=== PATIENT | male | born 1990 | race Asian ===

== ENCOUNTER 2023-07-10 21:45 | Observation (INO) | payer OTHER ==
[2023-07-10] MEDS ORDERED: NA CHLORIDE 0.9% 1,000 ML ONE (22:52)
[2023-07-10] MEDS ORDERED: dexAMETHasone 10 MG/ML VIAL ONE (22:52)
[2023-07-10 23:18] LABS: Absolute Basophils 0.1 K/uL (0-0.5); Absolute Lymphocytes (CBC) 2.5 K/uL (0.7-4.9); Absolute Monocytes 1.4 K/uL (0.1-1.3); Absolute Neutrophil 13.5 K/uL (1.8-8.0); Basophils % 0.3 % (0-1.3); Eosinophils % 0.3 % (0-4.4); Hematocrit 44.9 % (39.6-49.0); Hemoglobin 15.2 g/dL (13.6-17.9); Lymphocytes % 14.1 % (15.3-44.8); MCH 30.3 pg (27.0-35.0); MCHC 33.8 g/dL (32.0-36.0); MCV 89.4 fL (80-100); MPV 9.5 fL (7.6-11.3); Monocytes % 8.2 % (3.3-12.3); Neutrophils % 77.1 % (41.7-73.7); Platelets 254 thou/uL (152-406); RBC Red Blood Cell Count 5.02 M/uL (4.33-5.43); Red Cell Distribution Width 12.2 % (12.1-15.2)
[2023-07-10 23:30] LABS: Anion Gap 5.5 mEq/L (5.0-15.0); Potassium 3.5 mEq/L (3.5-5.1)
--- NOTE | 2023-07-10 23:46 | EDPHYS ---
Physician Documentation [facility] Name: Daniel Huddleston Age: 32 yrs Sex: Male : 1990 Arrival Date: 07/10/2023 Time: 21:45 Bed 10 Private MD: ED Physician Jeromy Martinez HPI: 07/09 23:43 This 32 yrs old Male presents to ER via Ambulatory with complaints of Throat kb abscess. 23:44 Pt is a 32 year old male who presents for sore throat that started 3 days ago. States kb he went to urgent care and was told to come here for possible abscess. 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 . Historical: - Allergies: 22:08 No Known Allergies; vc1 - Home Meds: 22:08 None [Active]; vc1 - PMHx: 22:08 None; vc1 - PSHx: 22:08 None; vc1 - Immunization history:: Adult Immunizations up to date. - Infectious Disease History:: Denies. - Social history:: Smoking status: Patient denies any tobacco usage or history of. ROS: 23:41 Constitutional: As per HPI kb Exam: 23:41 Constitutional: This is a well developed, well nourished patient who is awake, alert, kb and in no acute distress. Head/Face: Normocephalic, atraumatic. Cardiovascular: Regular rate Respiratory: Respirations even and unlabored. No increased work of breathing. Talking in full sentences Skin: Warm, dry with normal turgor. Normal color. MS/ Extremity: Pulses equal, no cyanosis. Neurovascular intact. Full, normal range of motion. Neuro: Awake and alert, GCS 15, oriented to person, place, time, and situation. Moves all extremities. Normal gait. 23:41 ENT: Posterior pharynx: Airway: normal, no evidence of obstruction, Tonsils: enlarged on the right, peritonsillar mass, is noted on the right, Vital Signs: 22:06 Height 5 ft. 7 in. ; vc1 22:09 BP 148 / 104; Pulse 95; Resp 16; Temp 98.8; Pulse Ox 99% ; Weight 90.72 kg; Pain 9/10; vc1 22:57 BP 150 / 111; Pulse 94; Resp 20; Pulse Ox 100% on R/A; me1 23:57 BP 150 / 107; Pulse 100; Resp 18; Pulse Ox 99% on R/A; tn1 07/10 00:40 BP 140 / 109; Pulse 98; Resp 18; Temp 98.1; Pulse Ox 99% ; vc1 22:09 Pain Scale: Adult vc1 MDM: 07/09 21:52 Patient medically screened. kb 23:43 Differential diagnosis: strep, tonsillitis, ROUSTABOUT CREW PUSHER. Data reviewed: vital signs, nurses kb notes. Consideration of Admission/Observation Patient was admitted/placed on observation. Escalation of care including admission/observation considered. Management of patient was discussed with the following: Reciprocating Drill Operator: Dr Hoyt consulted, will come see pt. Counseling: I had a detailed discussion with the patient and/or guardian regarding the historical points, exam findings, and any diagnostic results supporting the discharge/admit diagnosis, lab results, radiology results, the need for further work-up and treatment in the hospital. 07/10 00:21 ED course: Dr Hoyt at bedside for ROUSTABOUT CREW PUSHER drainage. kb 00:36 Management of patient was discussed with the following: Reciprocating Drill Operator: Dr Lai castaneda recommends admission for obs. . 07/09 21:56 Order name: CBC with Diff; Complete Time: 23:33 kb 07/09 21:56 Order name: Basic Metabolic Panel; Complete Time: 23:33 kb 07/09 21:56 Order name: CT Soft Tissue Neck W/contr kb 07/09 21:56 Order name: IV Start; Complete Time: 22:51 kb Administered Medications: 07/09 22:56 Drug: NS 0.9% IV 1000 ml IV at 1000 ml once Route: IV; Rate: 1000 ml; Site: right tn1 antecubital; 07/10 00:54 Follow up: IV Status: Completed infusion; IV Intake: 1000ml vc1 07/09 22:57 Drug: Decadron - Dexamethasone IVP 10 mg IVP once Route: IVP; Site: right antecubital; [facility] 23:01 Follow up: Response: No adverse reaction [facility] 07/10 00:09 Drug: Rocephin IV 1 grams IV at calculated rate once; Given slow IV push per pharmacy kl instructions Route: IV; Rate: calculated rate; Site: left antecubital; 00:11 Follow up: IV Status: Completed infusion; IV Intake: 10ml vc1 00:54 Drug: Clindamycin IVPB 900 mg IVPB once over 30 mins; (mix in 50 mL) Route: IVPB; vc1 Infused Over: 30 mins; Site: right antecubital; Disposition: 00:51 Co-signature as Attending Physician, Jeromy Martinez MD I agree with the assessment sp4 and plan of care. I reviewed the patient's care provided by Advanced Practice Provider \T\ agree w/ the diagnosis \T\ care plan. I personally saw the pt \T\ performed a substantive portion of the visit, incldng all aspects of the (History/Exam/Medical Decision Making). Disposition Summary: 07/11/23 00:37 Hospitalization Ordered Notes: Hospitalization Status: Observation(07/11/23 00:37) kb Provider: Daniela Hoyt(07/11/23 00:37) tonya Location: Telemetry/MedSurg (observation)(07/11/23 00:37) kb Condition: Stable(07/11/23 00:37) kb Problem: new(07/11/23 00:37) kb Symptoms: are unchanged(07/11/23 00:37) kb Bed/Room Type: Standard(07/11/23 00:37) kb Room Assignment: 218(07/11/23 00:42) vk Diagnosis - Peritonsillar abscess(07/11/23 00:37) kb Discharge Instructions: - Discharge Summary Sheet kb - Peritonsillar Abscess, [id number] kb Forms: - Medication Reconciliation Form kb - SBAR form kb - Leadership Thank You Letter kb Prescriptions: - Augmentin 875-125 mg Oral Tablet - take 1 tablet ORAL route every 12 hours for 10 days; 20 tablet; Refills: 0, kb Product Selection Permitted Signatures: Dispatcher [employer] Ana Gamble, DANNIE DEE-Evelyne Eden RN Airam Del Toro RN RN Jeromy Garcia MD MD sp4 Reina Ramos RN RN Rosmery Khan Corrections: (The following items were deleted from the chart) 07/09 22:08 22:08 PMHx: Unable to Obtain; vc1 vc1 07/10 00:20 07/09 23:45 Observation kb kb 07/11 99:20 07/09 23:45 Daniela Hoyt kb kb 07/10 00:20 07/09 23:45 Telemetry/MedSurg (observation) kb kb 07/10 00:20 07/09 23:45 Stable kb kb 07/10 00:20 07/09 23:45 new kb kb 07/10 00:20 07/09 23:45 are unchanged kb kb 07/10 00:20 07/09 23:45 Standard kb kb 07/10 00:20 07/09 23:45 kb kb 07/10 00:20 07/09 23:45 Peritonsillar abscess kb kb 07/10 00:42 00:37 kb vk
--- NOTE | 2023-07-10 23:46 | ER ---
Nurse's Notes [facility] Name: Daniel Huddleston Age: 32 yrs Sex: Male : 1990 Arrival Date: 07/10/2023 Time: 21:45 Bed 10 Private MD: Diagnosis: Peritonsillar abscess Presentation: 07/09 22:06 Chief complaint: Spouse and/or significant other states: Urgent care sent for vc1 peritonsillar abscess. Coronavirus screen: Client denies travel out of the [place] in the last 14 days. sore throat, Client presents with at least one sign or symptom that may indicate coronavirus-19. Ebola Screen: Patient negative for fever greater than or equal to 101.5 degrees Fahrenheit, and additional compatible Ebola Virus Disease symptoms Patient denies exposure to infectious person. Patient denies travel to an Ebola-affected area in the 21 days before illness onset. No symptoms or risks identified at this time. Initial Sepsis Screen: Does the patient meet any 2 criteria? No. Patient's initial sepsis screen is negative. Does the patient have a suspected source of infection? No. Patient's initial sepsis screen is negative. Risk Assessment: Do you want to hurt yourself or someone else? Patient reports no desire to harm self or others. Onset of symptoms is unknown. 22:06 Method Of Arrival: Ambulatory vc1 22:06 Acuity: CHERI 3 vc1 Triage Assessment: 22:09 General: Appears in no apparent distress. uncomfortable, Behavior is calm, cooperative, vc1 appropriate for age. Pain: Complains of pain in throat Pain does not radiate. Pain currently is 9 out of 10 on a pain scale. EENT: Reports difficulty swallowing pain when swallowing. Neuro: Level of Consciousness is awake, alert, obeys commands, Oriented to person, place, time, situation, none. Respiratory: Airway is patent Respiratory effort is even, unlabored, Respiratory pattern is regular, symmetrical. Historical: - Allergies: 22:08 No Known Allergies; vc1 - Home Meds: 22:08 None [Active]; vc1 - PMHx: 22:08 None; vc1 - PSHx: 22:08 None; vc1 - Immunization history:: Adult Immunizations up to date. - Infectious Disease History:: Denies. - Social history:: Smoking status: Patient denies any tobacco usage or history of. Screenin:15 [facility] ED Fall Risk Assessment (Adult) History of falling in the last 3 months, me1 including since admission No falls in past 3 months (0 pts) Confusion or Disorientation No (0 pts) Intoxicated or Sedated No (0 pts) Impaired Gait No (0 pts) Mobility Assist Device Used No (0 pt) Altered Elimination No (0 pt) Score/Fall Risk Level 0 - 2 = Low Risk Maintained a safe environment, Provided non-skid footwear, Hourly rounding (assess needs \T\ fall precautionary measures) done. Abuse screen: Denies threats or abuse. Nutritional screening: No deficits noted. Tuberculosis screening: No symptoms or risk factors identified. Assessment: 22:15 General: Appears uncomfortable, ill, well groomed, well developed, well nourished, me1 Behavior is calm, cooperative, appropriate for age, Reports Sent by Urgent care for peritonsilar abscess. Pain: Complains of pain in throat Pain does not radiate. Pain currently is 9 out of 10 on a pain scale. Quality of pain is described as tender, Pain began gradually, 2-3 days ago. Is continuous. Neuro: Level of Consciousness is awake, alert, obeys commands, Oriented to person, place, time, situation, Appropriate for age. Cardiovascular: Capillary refill < 3 seconds Patient's skin is warm and dry. Respiratory: Airway is patent Respiratory effort is even, unlabored, Respiratory pattern is regular, symmetrical. GI: No signs and/or symptoms were reported involving the gastrointestinal system. : No signs and/or symptoms were reported regarding the genitourinary system. EENT: Reports pain when swallowing. Derm: Skin is intact, is healthy with good turgor, Skin is pink, warm \T\ dry. Musculoskeletal: No signs and/or symptoms reported regarding the musculoskeletal system. 0507 00:41 Reassessment: No changes from previously documented assessment. Patient and/or family vc1 updated on plan of care and expected duration. Pain level reassessed. Patient is alert, oriented x 3, equal unlabored respirations, skin warm/dry/pink. Vital Signs: 07/09 22:06 Height 5 ft. 7 in. ; vc1 22:09 BP 148 / 104; Pulse 95; Resp 16; Temp 98.8; Pulse Ox 99% ; Weight 90.72 kg; Pain 9/10; vc1 22:57 BP 150 / 111; Pulse 94; Resp 20; Pulse Ox 100% on R/A; me1 23:57 BP 150 / 107; Pulse 100; Resp 18; Pulse Ox 99% on R/A; me1 07/10 00:40 BP 140 / 109; Pulse 98; Resp 18; Temp 98.1; Pulse Ox 99% ; vc1 22:09 Pain Scale: Adult vc1 ED Course: 07/09 21:48 Patient arrived in ED. mr 21:52 Logan Bakeristin, [facility] kb 21:52 Jeromy Martinez MD is Attending Physician. kb 22:08 Triage completed. vc1 22:08 Arm band placed on right wrist. vc1 22:15 Patient has correct armband on for positive identification. Bed in low position. Call [facility] light in reach. Side rails up X 1. Provided Education on: POC. Verbalized understanding. . Client placed on continuous cardiac and pulse oximetry monitoring. NIBP monitoring applied. Pulse ox on. NIBP on. 22:15 No provider procedures requiring assistance completed. me1 22:42 Reina Ramos, RN is Primary Nurse. me1 22:50 Initial lab(s) drawn, by va, sent to lab. Inserted saline lock: 20 gauge in right [facility] antecubital area, using aseptic technique. 22:51 Basic Metabolic Panel Sent. me1 22:51 CBC with Diff Sent. me1 23:17 CT Soft Tissue Neck W/contr In Process Unspecified. EDMS 23:45 Daniela Hoyt MD is Hospitalizing Provider. kb 07/10 00:36 Daniela Hoyt MD is Hospitalizing Provider. kb 01:55 Patient admitted, IV remains in place. vc1 Administered Medications: 07/09 22:56 Drug: NS 0.9% IV 1000 ml IV at 1000 ml once Route: IV; Rate: 1000 ml; Site: right va1 antecubital; 07/10 00:54 Follow up: IV Status: Completed infusion; IV Intake: 1000ml vc1 07/09 22:57 Drug: Decadron - Dexamethasone IVP 10 mg IVP once Route: IVP; Site: right antecubital; [facility] 23:01 Follow up: Response: No adverse reaction me1 05/07 00:09 Drug: Rocephin IV 1 grams IV at calculated rate once; Given slow IV push per pharmacy kl instructions Route: IV; Rate: calculated rate; Site: left antecubital; 00:11 Follow up: IV Status: Completed infusion; IV Intake: 10ml vc1 00:54 Drug: Clindamycin IVPB 900 mg IVPB once over 30 mins; (mix in 50 mL) Route: IVPB; vc1 Infused Over: 30 mins; Site: right antecubital; Medication: 07/09 22:15 VIS not applicable for this client. me1 Intake: 07/10 00:11 IV: 10ml; Total: 10ml. vc1 00:54 IV: 1000ml; Total: 1010ml. vc1 Outcome: 07/09 23:45 Decision to Hospitalize by Provider. kb 07/10 00:37 Decision to Hospitalize by Provider. kb 01:55 Admitted to Med/surg accompanied by tech, via wheelchair, room 218, Report called to [facility] faxed 01:55 Condition: good 01:55 Instructed on the need for admit, 01:55 Patient left the ED. 1 Signatures: Dispatcher [employer] EDAna Gary, CARRIAGE SETTER-C CARRIAGE SETTER-CkEvelyne Singh, RN RN Pia Duran, Kye Fishman mr Airam Lunsford RN RN 1 Reina Ramos RN RN [facility] Corrections: (The following items were deleted from the chart) 07/09 22:08 22:08 PMHx: Unable to Obtain; vc1 vc1
[2023-07-11] MEDS ORDERED: CEFTRIAXONE 1000 MG/VIAL ONE (00:10)
[2023-07-11] MEDS ORDERED: CLINDAMYCIN 900MG/D5W 900 MG/50 ML IVPB IV ONE (00:47)
[2023-07-11] MEDS: CLINDAMYCIN INJ 900 MG in NA CHLORIDE 0.9% 50 ML IV SCH (02:42)
[2023-07-11] MEDS ORDERED: ONDANSETRON 4 MG/2 ML VIAL IV PRN (02:42)
[2023-07-11] MEDS: dexAMETHasone 10 MG/ML VIAL IV SCH ×2 (02:42→08:00)
[2023-07-11] MEDS: MORPHINE 4 MG/ML SYR IV PRN (02:50)
[2023-07-11] MEDS: NA CHLORIDE 0.9% 1,000 ML IV SCH (02:50)
[2023-07-11] MEDS: CLINDAMYCIN 900MG/D5W 900 MG/50 ML IVPB IV SCH ×2 (03:00→10:52)
--- NOTE | 2023-07-11 04:33 | CON ---
Date of Consultation: 07/10/2023 Reason For Consultation: Peritonsillar abscess. History Of Present Illness: Mr. Huddleston is a 32-year-old man who was in his usual state of heal th until approximately 1 week ago when he began to have a sore throat. He was seen at an urgent care and started on Augmentin, but over the last 3 days, he had progression of the sore throat with devel opment of trismus and right ear pain which progressed. He began to have sensation of difficulty swal lowing and swelling in the neck and his noted that his snoring appeared to be worsening with pablo e episodes of choking during sleep. Due to concerns for progression of his condition, he came to the emergency room and was evaluated by the staff there including performance of a CT scan of the neck, which demonstrated a developing peritonsillar abscess on the right side resulting in the ENT consulta tion. The patient received 10 mg of Decadron as well as 1 g of Rocephin and an L of IV fluids. Past Medical History: None. Past Surgical History: None. Allergies: SHRIMP. Home Medications: None. Review of Systems: As documented by the ER is reviewed with no significant changes. Physical Examination: General: Patient is in no acute distress. He has mild muscled voice. HEENT: His head and face are symmetric and atraumatic. His eyes show no evidence of scleral icterus . His pupils are equal, round, and reactive and extraocular movements are intact. The external nose is unremarkable via headlight. The nasal cavity appears unremarkable. The patient has trismus of a bout 1.5 to 2 cm with significant swelling and edema of the right palate and right tonsil area. The right tonsil also has moderate to significant cryptic areas. Neck: His neck shows mild tender lymphadenopathy and swelling consistent with the condition and exam . Laboratory Data: Leukocytosis of 17,000. CT neck with contrast images are personally reviewed, whic h demonstrates an irregular area of hyperlucency within the soft palate and right tonsil area extendi ng somewhat inferiorly. Assessment: Right peritonsillar abscess. Plan: Bedside incision and drainage with subsequent placement under observation for continued medica tion management and airway due to risk of airway compromise. We will plan to allow ice chips and concetta ar liquids, begin clindamycin 900 mg IV q.8, Decadron 8 mg IV q.8, Zofran as needed, morphine IV as n eeded, and IV fluids at 125 mL/hour. WEI/BRIAN Voice ID: [id number] Report ID: [id number]
--- NOTE | 2023-07-11 04:42 | OP ---
Date of Procedure: 07/10/2023 Surgeon: Daniela Hoyt MD Motorcycle Builder: None. Bedside incision and drainage of right peritonsillar abscess. Preoperative Diagnosis: Right peritonsillar abscess. Postoperative Diagnosis: Right peritonsillar abscess versus peritonsillar phlegmon. Procedure: Incision and drainage of right peritonsillar abscess. Anesthesia: Local via 1% lidocaine with epinephrine infused into the right soft palate. Indication For Procedure: The patient presented with a right peritonsillar abscess and verbally agre ed to incision and drainage. Description Of Procedure: The patient was positioned sitting upright. 1 mL of 1% lidocaine with epi nephrine was infused into the right soft palate. After several minutes, a 21-gauge needle on a 10 cc syringe was used to perform needle aspiration in 2 separate locations without significant return of pus. A 15 blade scalpel was used to make a 1-cm incision just below the needle aspiration location a nd a blunt tonsil clamp was used to probe into the soft tissues in all directions. No significant fl uid or pus collection was encountered. The CT was reviewed and it was noted that the fluid collectio n was approximately 1.3 cm from the surface of the soft palate. The incision was again probed to a d epth felt to be adequate to access this presumed fluid pocket, but no specific fluid or pus collectio n was encountered. The procedure was then concluded based on patient tolerance of further interventi on. Bleeding was fairly minimal and controlled with ice water gargles. Disposition: Due to failure to adequately or definitively drain the peritonsillar abscess, I recomme nded placement under observation for continued IV hydration, administration of IV pain medication, an tibiotics, and steroids and to allow for close clinical followup over the next 12-24 hours. I discus sed with the patient that if his symptoms of pain, swelling, and dysphagia significantly improved wit h medical therapy, we can likely plan to discharge patient in the morning. If he is not significantl y improved, we will plan to consider operative intervention under general anesthesia in order to adeq uately address the patient's tonsil issues. SH/MODL Voice ID: [id number] Report ID: [id number]
--- NOTE | 2023-07-11 08:12 | P.PN ---
Date of Service: 07/11/23 HD 1: Patient admitted overnight following unsuccessful attempt at I&D of right peritonsillar abscess. Clinical considerations included poorly organized phlegmon versus deep location of fluid collection. The patient received 1 dose of clindamycin around midnight and an additional dose of dexamethasone this morning. Overall, the patient has not had any significant improvement in his symptoms. He continues to have moderate to severe sore throat, pain with swallowing and sensation of swelling in the throat. He notes that overnight while laying on the left side he felt his throat was closing to some degree. When laying on the right side he was breathing much more easily. He is tolerating his own secretions as well as sips of clear liquids and ice chips. He has also been maintained on maintenance IV fluids overnight. Exam: Persistent moderate trismus with mouth opening of 1.5 to 2 cm. With inferior distraction of the tongue, he has a 1 cm incision on the right soft palate with no active drainage. He continues to have significant swelling of the soft palate and right tonsil region. Data: No additional labs this morning Assessment: Right peritonsillar abscess with limited improvement on medical therapy following unsuccessful I&D. Plan: Continue observation with additional doses of clindamycin pending this mo rning. CBC ordered for this morning. Patient advised that we will reassess his symptoms around lunchtime and if not improved we will plan for surgical intervention with general anesthesia including incision and drainage versus possible Axel tonsillectomy pending findings. If the patient does have clinically significant improvement over the next 8 hours, we can reassess the need for surgical intervention. Update: patient seen around noon with moderate improvement. Continue medication for now and tentatively schedule surgery but if continues to improve, will cancel. Update: patient seen around 17:30 and is significantly improved with decrease sore throat, nearly resolved ear pain. Trismus is improved with mouth opening of 3cm and persistent R OP swelling but overall improving. Will cancel surgery and continue medical therapy with plan to start PO diet as tolerated and likely DC in the AM if he continues to improve.
[2023-07-11 08:25] VITALS: BMI 31.3
[2023-07-11 09:44] LABS: Absolute Basophils 0.1 K/uL (0-0.5); Absolute Monocytes 0.4 K/uL (0.1-1.3); Absolute Neutrophil 17.7 K/uL (1.8-8.0); Basophils % 0.3 % (0-1.3); Hematocrit 43.5 % (39.6-49.0); Hemoglobin 14.4 g/dL (13.6-17.9); Lymphocytes % 5.3 % (15.3-44.8); MCH 29.7 pg (27.0-35.0); MCV 90.1 fL (80-100); MPV 9.4 fL (7.6-11.3); Monocytes % 2.1 % (3.3-12.3); Neutrophils % 92.3 % (41.7-73.7); Platelets 279 thou/uL (152-406); RBC Red Blood Cell Count 4.83 M/uL (4.33-5.43); Red Cell Distribution Width 12.3 % (12.1-15.2)
--- NOTE | 2023-07-11 10:08 | RAD REPORT ---
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 All CT scans at this facility use dose modulation, iterative reconstruction, and/or weight based dosi ng when appropriate to reduce radiation dose to as low as reasonably achievable. FINDINGS: Sinuses: Visualized paranasal sinuses and mastoid air cells are clear. No acute soft tissue edema. No retropharyngeal edema. Salivary glands: Within normal limits. Pharynx: Epiglottis is normal. No airway compromise. No suspicious enhancing lesions. Mucosal surfaces are symmetric. [place] tonsils: There is enlarged right tonsil measuring 2.6 x 2.5 x 4.8 cm on axial image 27/77 an d sagittal 60/125. There is central area of hypodensity measuring 1.7 x 1.3 x 3 cm corresponding to a peritonsillar abscess. There are reactive right submandibular lymph node measuring 0.8 cm on image 3 7/77. Left tonsil demonstrate to be within normal limits. Surface mucous of the base of the tongue: Unremarkable. Vallecula: Unremarkable. Piriform sinus: Unremarkable. Vocal cords: Unremarkable. Proximal trachea: Unremarkable. Nodes: No cervical adenopathy. Bones: No acute bone findings. Vascular: Within normal limits. Thyroid: Within normal limits. Lung apices are clear. IMPRESSION: Right peritonsillar abscess measuring 1.7 x 1.3 x 3 cm. Electronically signed by: Cong Moore MD 07/10/2023 11:32 PM CDT Due to temporary technical issues with the PACS/Fluency reporting system, reports are being signed by the in house radiologists without review as a courtesy to insure prompt reporting. The interpreting radiologist is fully responsible for the content of the report.
[2023-07-11 10:53] LABS: Blood Morphology Comment NOT SEEN (NOT SEEN); Platelet Estimate ADEQ; Platelets, Giant FEW; White Blood Cell Scan OK (OK)
[2023-07-11 20:14] VITALS: O2SAT 97
--- NOTE | 2023-07-12 08:13 | P.DS ---
Admission Date: 07/11/23 Discharge Date: 07/12/23 Disposition: ROUTINE DISCHARGE Discharge Condition: GOOD Reason for Admission: peritonsillar abscess Procedures: I&D without significant pus expressed - Problems (1) Peritonsillar abscess Current Visit: Yes Status: Acute Brief History of Present Illness: Patient with acute 1wk hx of sore throat with worsening despite PO/outpt Augmentin. Hospital Course: I&D in ER by ENT without signifciant pus. Placed under obs for IV Abx and hydration. Treated with Clindmycin 90mmg q8 and Decdron 8mg q8h with slow improvmeent over 24 hours. Vital Signs/Physical Exam: Temp Pulse Resp BP Pulse Ox 98.0 F 88 16 140/73 97 07/12/23 04:00 07/12/23 04:00 07/12/23 04:00 07/12/23 04:00 07/12/23 04:00 General: Alert, In no apparent distress HEENT: Atraumatic, Normocephalic, Mucous membr. moist/pink, Other (right OP swelling much improved, trismus resolved) Neck: Supple Respiratory: Normal air movement Neurological: Normal speech Laboratory Data at Discharge: WBC 19.10 thou/uL (4.3-10.9) H 07/11/23 09:32 Hgb 14.4 g/dL (13.6-17.9) 07/11/23 09:32 Hct 43.5 % (39.6-49.0) 07/11/23 09:32 Plt Count 279 thou/uL (152-406) 07/11/23 09:32 Sodium 136 mEq/L (136-145) 07/10/23 22:49 Potassium 3.5 mEq/L (3.5-5.1) 07/10/23 22:49 BUN 9 mg/dL (7-18) 07/10/23 22:49 Creatinine 1.01 mg/dL (0.70-1.30) 07/10/23 22:49 Glucose 98 mg/dL (74-106) 07/10/23 22:49 Home Medications: NK [No Home Meds] 07/11/23 Diet: Regular Activity: Ad kely Followup: NONE,NONE [Primary Care Provider] - Physician Review: Patient Assessed, Agree with Above Assessment and Plan
[2023-07-12 08:30] VITALS: BP 128/85; TEMP 97.1
[2023-07-12] MEDS ORDERED: CLINDAMYCIN 900MG/D5W 900 MG/50 ML IVPB IV SCH (17:00)
== END 2023-07-12 10:50 | disposition home or self-care (01) ==
LOC: ER 21:45 → ERHOLD 07-11 00:38 → 2ND 07-11 01:22
PROVIDERS: ADMIT Otolaryngology; ATTEND Otolaryngology
PROC: 0C9PXZZ Drainage of Tonsils, External Approach (ICD-10-PCS; principal; 2023-07-11)
DX: J36 Peritonsillar abscess (principal)
CPT/HCPCS: 85025 ×2; 80048; 36415; 70491; 99285; 42700; Q9967; J1100 ×5; J7030 ×6; J0696; G0378 ×3